=== PATIENT | male | born 1945 | race Caucasian/White ===

== ENCOUNTER 2023-07-25 14:58 | Outpatient (RCR) | payer MEDICARE, OTHER, SELFPAY | END 2023-07-25 23:59 | disposition home or self-care (01) | LOC: RPT 14:58 | PROVIDERS: ATTENDING PHYSICIAN Orthopaedic Surgery; FAMILY PHYSICIAN Internal Medicine | DX: M25.551 Pain in right hip (principal); Z73.6 Limitation of activities due to disability; R26.2 Difficulty in walking, not elsewhere classified; M62.81 Muscle weakness (generalized); M17.11 Unilateral primary osteoarthritis, right knee | CPT/HCPCS: 97110; 97112; 97161 ==

== ENCOUNTER 2023-08-21 13:12 | Outpatient (RCR) | payer MEDICARE, OTHER, SELFPAY | END 2023-08-21 23:59 | disposition home or self-care (01) | LOC: RPT 13:12 | PROVIDERS: ATTENDING PHYSICIAN Orthopaedic Surgery; FAMILY PHYSICIAN Internal Medicine | DX: M70.61 Trochanteric bursitis, right hip (principal); M25.551 Pain in right hip; Z73.6 Limitation of activities due to disability | CPT/HCPCS: 97110; 97112; 97140 ==

== ENCOUNTER 2023-09-04 14:05 | Outpatient (RCR) | payer MEDICARE, OTHER, SELFPAY | END 2023-09-05 07:34 | disposition home or self-care (01) | LOC: RPT 14:05 | PROVIDERS: ATTENDING PHYSICIAN Orthopaedic Surgery; FAMILY PHYSICIAN Internal Medicine | DX: M70.61 Trochanteric bursitis, right hip (principal); M25.551 Pain in right hip; Z73.6 Limitation of activities due to disability | CPT/HCPCS: 97110; 97112; 97140 ==